=== PATIENT | male | born 1955 | race Hispanic/Latino ===

== ENCOUNTER 2019-03-21 13:10 | Inpatient (IN) | payer MEDICARE, OTHER ==
[2019-03-21 13:10] VITALS: BMI 22.6
--- NOTE | 2019-03-21 13:45 | C.PDOC ---
History Of Present Illness Patient is a 63yo M with PMH DVT on Xarelto, hypovitaminosis, schizoaffective disorder, and recurrent bilateral LE ulcers who was sent in by Dr. May, his roll builder, for IV antibiotics of worsening L leg ulcer. He was started on a course of Clindamycin 8 days ago of which he admits being noncompliant with. He goes to wound care once a week to have his bilateral LE redressed with occlusive dressing. Wound care noted that his LE was becoming more erythematous and edematous, having minimal discharge. He states that it does not bleed, but continuously has serous discharge. He noted his pants were starting to fit tighter, but he is still able to bear weight and ambulate without difficult. Denies HTN, DM, HLD. Denies trauma, chest pain, palpitations, shortness of breath, abdominal pain, changes in urination or defecation, numbness, tingling, fever. Admits to chills occasionally, not associated with ulcer status. <Marlys Rodrigues - Last Filed: 03/21/19 14:58> History Per: Patient Onset/Duration Of Symptoms: Days, Gradual Current Symptoms Are (Timing): Worse Location Of Injury: Right: Ankle (open wound R>L on medial aspects), Leg (open wound), Left: Ankle <Maryls Rodrigues - Last Filed: 03/21/19 14:58> <Erasto Dykes DO - Last Filed: 03/21/19 18:10> Time Seen by Provider: 03/21/19 13:26 Chief Complaint (Nursing): Abnormal Skin Integrity Past Medical History Reviewed: Historical Data, Nursing Documentation, Vital Signs Vital Signs: Last Vital Signs Temp 97.7 F 03/21/19 13:13 Pulse 79 03/21/19 13:13 Resp 16 03/21/19 13:13 BP 127/75 03/21/19 13:13 Pulse Ox 100 03/21/19 13:13 - Medical History PMH: Deep Vein Thrombosis, Schizophrenia (schizoaffective disorder) Surgical History: Tonsillectomy - [facility] Procedures CENTRAL VENOUS CATHETER PLACEMENT WITH GUIDANCE (09/30/13) CORONAR ARTERIOGR-2 CATH (08/29/14) DERMAL REGENERATIVE GRAFT (11/15/13) EXCIS DEBRIDE OF WOUND, INFECT, OR BURN (07/22/13) IMMOBILIZ/WOUND ATTN NEC (01/22/14) INFLUENZA VACCINATION (08/29/14) LEFT HEART CARDIAC CATH (08/29/14) LT HEART ANGIOCARDIOGRAM (08/29/14) NONEXCIS DEBRID OF WOUND, INFECT, OR BURN (07/15/15) OTHER CAST APPLICATION (02/19/14) VENOUS CATHETERIZATION NEC (08/29/14) Family History: States: No Known Family Hx - Social History Hx Tobacco Use: No Hx Alcohol Use: No Hx Substance Use: No - Immunization History Hx Tetanus Toxoid Vaccination: Yes (2014) Hx Influenza Vaccination: Yes Hx Pneumococcal Vaccination: Yes (2017) <Marlys Rodrigues - Last Filed: 03/21/19 14:58> Vital Signs: Last Vital Signs Temp 97.2 F L 03/21/19 17:34 Pulse 81 03/21/19 17:34 Resp 20 03/21/19 17:34 BP 135/73 03/21/19 17:34 Pulse Ox 97 03/21/19 17:34 - [facility] Procedures CENTRAL VENOUS CATHETER PLACEMENT WITH GUIDANCE (09/30/13) CORONAR ARTERIOGR-2 CATH (08/29/14) DERMAL REGENERATIVE GRAFT (11/15/13) EXCIS DEBRIDE OF WOUND, INFECT, OR BURN (07/22/13) IMMOBILIZ/WOUND ATTN NEC (01/22/14) INFLUENZA VACCINATION (08/29/14) LEFT HEART CARDIAC CATH (08/29/14) LT HEART ANGIOCARDIOGRAM (08/29/14) NONEXCIS DEBRID OF WOUND, INFECT, OR BURN (07/15/15) OTHER CAST APPLICATION (02/19/14) VENOUS CATHETERIZATION NEC (08/29/14) <Erasto Dykes DO - Last Filed: 03/21/19 18:10> Review Of Systems Constitutional: Positive for: Chills. Negative for: Fever, Weakness, Malaise, Weight loss Cardiovascular: Positive for: Edema. Negative for: Chest Pain, Palpitations, Light Headedness Respiratory: Negative for: Cough, Shortness of Breath, Sputum, Wheezing Gastrointestinal: Negative for: Nausea, Vomiting, Abdominal Pain, Diarrhea, Constipation Genitourinary: Negative for: Dysuria, Frequency, Incontinence Musculoskeletal: Positive for: Leg Pain. Negative for: Foot Pain Skin: Positive for: Lesions Neurological: Negative for: Weakness, Numbness Psych: Negative for: Anxiety, Suicidal ideation <Marlys Rodrigues Marcello - Last Filed: 03/21/19 14:58> Physical Exam - Physical Exam Appears: No Acute Distress, Chronically Ill Skin: Warm (warm to touch ), Other (large 3"x6" dark red ulcer with areas of pus on medial aspect of L leg. Erythematous and edematous border) Head: Atraumatic, Normacephalic Eye(s): bilateral: Normal Inspection (glasses), PERRL, EOMI Cardiovascular: Rhythm Regular, Edema, No Murmur Respiratory: Normal Breath Sounds, No Accessory Muscle Use, No Rales, No Rhonchi, No Stridor Gastrointestinal/Abdominal: Bowel Sounds, Soft, No Tenderness, No Distention, No Rebound Back: Normal Inspection, No CVA Tenderness Extremity: Normal ROM, Calf Tenderness, Capillary Refill (< 2 sec), Swelling Extremity: Right: Joint Effusion, Limited ROM To Joint (limited ankle ROM secondary to swelling), No Pedal Edema (2+ pitting edema in foot, ankle, ascending to knee), Normal ROM, Unable To Bear Weight (patient is able to bear weight and walk without difficulty), Bilateral: Pulse Deficit (pulses palpable through edema) Pulses: Left Dorsalis Pedis: Normal, Right Dorsalis Pedis: Normal DTR: Knee (R): 2+, Knee (L): 2+ Neurological/Psych: Oriented x3, Normal Speech, Normal Cognition Gait: Steady <Marlys Rodrigues Marcello - Last Filed: 03/21/19 14:58> ED Course And Treatment - Laboratory Results Result Diagrams: 03/21/19 14:35 03/21/19 14:35 O2 Sat by Pulse Oximetry: 100 <Marlys Rodrigues - Last Filed: 03/21/19 14:58> - Laboratory Results Result Diagrams: 03/21/19 14:35 03/21/19 14:35 Lab Results: Total Bilirubin 0.4 mg/dL (0.2-1.3) 03/21/19 14:35 AST 32 U/L (17-59) 03/21/19 14:35 ALT 28 U/L (21-72) 03/21/19 14:35 Alkaline Phosphatase 53 U/L (38-126) 03/21/19 14:35 Total Protein 6.7 g/dL (6.3-8.3) 03/21/19 14:35 Albumin 4.0 g/dL (3.5-5.0) 03/21/19 14:35 Globulin 2.8 gm/dL (2.2-3.9) 03/21/19 14:35 Albumin/Globulin Ratio 1.4 (1.0-2.1) 03/21/19 14:35 <Erasto Dykes DO - Last Filed: 03/21/19 18:10> Medical Decision Making Medical Decision Making: - labs - XR ankle L: Thick periosteal reaction in the visualized distal tibia and fibula which may represent acute and/or chronic osteomyelitis. No evidence for bone erosion. Moderate periarticular soft tissue swelling and irregular soft tissue defects in the medial left most compatible with ulceration and anne lulitis. - blood and wound Cx sent 1501 Dr. Martin called, will admit inpatient to his service. Aztreonam and Vanco started. <Marlys Rodrigues - Last Filed: 03/21/19 14:58> Disposition Discussed With : Marlon Martin Doctor Will See Patient In The: Hospital - Disposition Disposition Time: 15:03 <Marlys Rodrigues - Last Filed: 03/21/19 14:58> <Erasto Dykes DO - Last Filed: 03/21/19 18:10> - Disposition Disposition: HOSPITALIZED Condition: FAIR - Clinical Impression Clinical Impression: Osteomyelitis of left leg - PA / CULLET CRUSHER / Resident Statement ELSA has reviewed & agrees with the documentation as recorded. ELSA has examined the patient and agrees with the treatment plan. <Marlys Rodrigues - Last Filed: 03/21/19 14:58> - PA / CULLET CRUSHER / Resident Statement ELSA has reviewed & agrees with the documentation as recorded. ELSA has examined the patient and agrees with the treatment plan. <Erasto Dykes DO - Last Filed: 03/21/19 18:10>
[2019-03-21 14:40] LABS: BASO % 0.4 % (0.0-2.0); EOS # 0.1 K/uL (0.0-0.7); EOS % 1.2 % (0.0-4.0); LYMPH # 0.6 K/uL (1.0-4.3); LYMPH % 10.2 % (20.0-40.0); MEAN CELL VOLUME 94.8 fL (80.0-94.0); MEAN CORPUSCULAR HEMOGLOBIN 32.3 pg (27.0-31.0); MEAN CORPUSCULAR HGB CONC 34.1 g/dL (33.0-37.0); MEAN PLATELET VOLUME 7.8 fL (7.2-11.7); MONO # 0.5 K/uL (0.0-0.8); NEUT # 5.1 K/uL (1.8-7.0); NEUT % 80.2 % (50.0-75.0); RBC 4.02 Mil/uL (4.40-5.90); RED CELL DISTRIBUTION WIDTH 12.9 % (11.5-14.5); WHITE BLOOD COUNT 6.4 K/uL (4.8-10.8)
--- NOTE | 2019-03-21 14:54 | RAD ---
Date of service: 03/21/2019 PROCEDURE: Left Ankle Radiographs. HISTORY: left ankle ulcer r/o osteo COMPARISON: 09/30/2013. TECHNIQUE: 3 views obtained. FINDINGS: BONES: There is thick periosteal reaction in visualized distal tibia and fibula. There is no acute fracture or bone destruction. There is diffuse bone demineralization. There is a large plantar calcaneal spur. There is linear ossification in the Achilles tendon at its attachment to the calcaneus. JOINTS: Mild degenerative osteoarthrosis in the talonavicular joint. Ankle mortise maintained. Talar dome intact SOFT TISSUES: Moderate periarticular soft tissue swelling and soft tissue defects in the distal medial leg. OTHER FINDINGS: None. IMPRESSION: Thick periosteal reaction in the visualized distal tibia and fibula which may represent acute and/or chronic osteomyelitis. No evidence for bone erosion. Moderate periarticular soft tissue swelling and irregular soft tissue defects in the medial left most compatible with ulceration and cellulitis.
[2019-03-21 14:56] LABS: ALB/GLOB RATIO 1.4 (1.0-2.1); ALT/SGPT 28 U/L (21-72); AST/SGOT 32 U/L (17-59); BLOOD UREA NITROGEN 25 mg/dL (9-20); GFR NON-AFRICAN AMERICAN > 60
[2019-03-21] MEDS ORDERED: Aztreonam 1 GM in Sodium Chloride 0.9% 100 ML IVPB ONE (15:02)
[2019-03-22] MEDS: Aztreonam 2 GM in Sodium Chloride 0.9% 100 ML IVPB SCH ×3 (00:33→17:56)
[2019-03-22] MEDS: Vancomycin 1 gm/NS 200 ml 1 GM/200 ML BAG IVPB SCH ×2 (03:05→16:13)
--- NOTE | 2019-03-22 09:06 | CP.PCM.CON ---
<Portillo May - Last Filed: 03/22/19 09:02> History of Present Illness - History of Present Illness History of Present Illness: 63 year old male seen at [facility] [place] this week and worsened ankle ulcer with Psuedomonas infection and failed outpatient therapy with admitted non adherence Pt can not take Cipro due to drug interaction and due to worsening infection and spreading, largening of wound admission was advised . Past Patient History - Past Medical History & Family History Past Medical History?: Yes - Past Social History Smoking Status: Never Smoked - MUSCULOSKELETAL/RHEUMATOLOGICAL Hx Falls: Yes - PSYCHIATRIC Hx Schizophrenia: Yes (schizoaffective disorder) Hx Substance Use: No - SURGICAL HISTORY Hx Tonsillectomy: Yes - ANESTHESIA Hx Anesthesia: Yes Meds Allergies/Adverse Reactions: Allergies Allergy/AdvReac Type Severity Reaction Status Date / Time Penicillins Allergy ITCHING Verified 03/21/19 13:17 - Medications Medications: Current Medications Acetaminophen (Tylenol 325mg Tab) 650 mg PO Q6 PRN PRN Reason: Pain Ascorbic Acid (Vitamin C 500 Mg Tab) 500 mg PO DAILY [facility] Cyanocobalamin (Vitamin B12 1000 Mcg Tab) 1,000 mcg PO DAILY [facility] Aztreonam 2 gm/ Sodium (Chloride) 100 mls @ 200 mls/hr IVPB Q8H [facility]; Protocol Last Admin: 03/22/19 00:33 Dose: 200 mls/hr Vancomycin/Sodium Chloride (Vancomycin 1 Gm/Ns 200 Ml) 1 gm in 200 mls @ 133 mls/hr IVPB Q12H [facility]; Protocol Stop: 03/27/19 04:01 Last Admin: 03/22/19 03:05 Dose: 133 mls/hr Olanzapine (Zyprexa) 5 mg PO HS [facility] Last Admin: 03/21/19 21:31 Dose: 5 mg Rivaroxaban (Xarelto) 20 mg PO DAILY [facility] Zinc Sulfate (Zinc Sulfate 220 Mg Cap) 220 mg PO DAILY [facility] Results - Vital Signs Recent Vital Signs: Last Vital Signs Temp 98.6 F 03/22/19 08:27 Pulse 76 03/22/19 08:27 Resp 20 03/22/19 08:27 BP 110/67 03/22/19 08:27 Pulse Ox 98 03/22/19 08:27 - Labs Result Diagrams: 03/21/19 14:35 03/21/19 14:35 Labs: Laboratory Results - last 24 hr 03/21/19 03/21/19 14:35 14:35 WBC 6.4 RBC 4.02 L Hgb 13.0 D Hct 38.1 MCV 94.8 H D MCH 32.3 H MCHC 34.1 RDW 12.9 Plt Count 219 D MPV 7.8 Neut % (Auto) 80.2 H Lymph % (Auto) 10.2 L Bremer % (Auto) 8.0 Eos % (Auto) 1.2 Baso % (Auto) 0.4 Neut # (Auto) 5.1 Lymph # (Auto) 0.6 L Bremer # (Auto) 0.5 Eos # (Auto) 0.1 Baso # (Auto) 0.0 Sodium 132 Potassium 3.7 Chloride 96 L Carbon Dioxide 28 Anion Gap 11 BUN 25 H Creatinine 0.7 L Est GFR ( Amer) > 60 Est GFR (Non-Af Amer) > 60 Random Glucose 87 Calcium 9.0 Total Bilirubin 0.4 AST 32 ALT 28 Alkaline Phosphatase 53 Total Protein 6.7 Albumin 4.0 Globulin 2.8 Albumin/Globulin Ratio 1.4 <Alberto Saenz - Last Filed: 03/22/19 14:17> History of Present Illness - History of Present Illness History of Present Illness: PMHx: DVT PSHx: Tonsilectomy Allergies: Penicillins SHx: Denies EtOH, smoking or any illicit drug usage Review of Systems - Constitutional Constitutional: As Per HPI Meds - Medications Medications: Current Medications Acetaminophen (Tylenol 325mg Tab) 650 mg PO Q6 PRN PRN Reason: Pain Ascorbic Acid (Vitamin C 500 Mg Tab) 500 mg PO DAILY [facility] Last Admin: 03/22/19 09:18 Dose: 500 mg Cyanocobalamin (Vitamin B12 1000 Mcg Tab) 1,000 mcg PO DAILY [facility] Last Admin: 03/22/19 09:19 Dose: 1,000 mcg Aztreonam 2 gm/ Sodium (Chloride) 100 mls @ 200 mls/hr IVPB Q8H [facility]; Protocol Last Admin: 03/22/19 09:19 Dose: 200 mls/hr Vancomycin/Sodium Chloride (Vancomycin 1 Gm/Ns 200 Ml) 1 gm in 200 mls @ 133 mls/hr IVPB Q12H [facility]; Protocol Stop: 03/27/19 04:01 Last Admin: 03/22/19 03:05 Dose: 133 mls/hr Olanzapine (Zyprexa) 5 mg PO HS [facility] Last Admin: 03/21/19 21:31 Dose: 5 mg Rivaroxaban (Xarelto) 20 mg PO DAILY [facility] Last Admin: 03/22/19 09:19 Dose: 20 mg Zinc Sulfate (Zinc Sulfate 220 Mg Cap) 220 mg PO DAILY [facility] Last Admin: 03/22/19 09:18 Dose: 220 mg Physical Exam - Constitutional Appears: Well, Non-toxic, No Acute Distress - Extremities Exam Additional comments: Dressing to bilateral LE are clean, dry and intact - no stikethrough or drainage noted - Neurological Exam Neurological exam: Alert, Oriented x3 - Psychiatric Exam Psychiatric exam: Normal Affect, Normal Mood Results - Vital Signs Recent Vital Signs: Last Vital Signs Temp 98.6 F 03/22/19 08:27 Pulse 76 03/22/19 08:27 Resp 20 03/22/19 08:27 BP 110/67 03/22/19 08:27 Pulse Ox 98 03/22/19 08:27 - Labs Result Diagrams: 03/21/19 14:35 03/21/19 14:35 Labs: Laboratory Results - last 24 hr 03/21/19 03/21/19 14:35 14:35 WBC 6.4 RBC 4.02 L Hgb 13.0 D Hct 38.1 MCV 94.8 H D MCH 32.3 H MCHC 34.1 RDW 12.9 Plt Count 219 D MPV 7.8 Neut % (Auto) 80.2 H Lymph % (Auto) 10.2 L Bremer % (Auto) 8.0 Eos % (Auto) 1.2 Baso % (Auto) 0.4 Neut # (Auto) 5.1 Lymph # (Auto) 0.6 L Bremer # (Auto) 0.5 Eos # (Auto) 0.1 Baso # (Auto) 0.0 Sodium 132 Potassium 3.7 Chloride 96 L Carbon Dioxide 28 Anion Gap 11 BUN 25 H Creatinine 0.7 L Est GFR ( Amer) > 60 Est GFR (Non-Af Amer) > 60 Random Glucose 87 Calcium 9.0 Total Bilirubin 0.4 AST 32 ALT 28 Alkaline Phosphatase 53 Total Protein 6.7 Albumin 4.0 Globulin 2.8 Albumin/Globulin Ratio 1.4 Assessment & Plan - Assessment and Plan (Free Text) Assessment: 63 year old male with PMHx of DVT was evaluated for bilateral LE ulcerations Plan: Patient seen and evaluated with Dr. May VSMariam, no leukocytosis Ankle x-rays: Periosteal reaction with cortical margin erosion on the distal aspect of the tibia and fibula - concerning for chronic OM; no soft tissue emphysema Bone scan ordered - pending Venous duplex - pending Wound cultures: G+ cocci; G- rods IV abx as per ID - recs appreciated Dressing changed using medihoney, DSD, SEAN Keep RLE unna boot intact Will continue to monitor patient while in-house Thank you for the podiatry consult and allowing to take part in patient care - Date & Time Date: 03/22/19 Time: 14:17
--- NOTE | 2019-03-22 12:47 | NM ---
Date of service: 03/22/2019 PROCEDURE: Three-phase bone Scan HISTORY: Osteomyelitis left ankle. COMPARISON: 10/04/2013 three-phase bone scan lower extremities. March 21, 2019. Left ankle radiographs. TECHNIQUE: Following administration of 28.3 miCu of Tc MDP three-phase bone scan attention left ankle performed. FINDINGS: Flow component: Increased flow primarily to the medial aspect of the left ankle. No focal accumulation of radionuclide identified in the areas of interest distal left tibia and fibula. Blood pool component: Intense accumulation of radionuclide in the soft tissues X corresponding to findings within the soft tissues on recent radiographs. Specifically the ulcer adjacent to the distal tibia. Delayed images at 3:00: Accumulation of radionuclide in the left calcaneus and left 5th digit. Other findings: None. IMPRESSION: Areas of intense increased flow to and accumulation within soft tissues left ankle corresponding to radiographic findings. This is consistent with cellulitis. No scintigraphic evidence of acute osteomyelitis.
--- NOTE | 2019-03-22 16:37 | CP.PCM.CON ---
History of Present Illness - History of Present Illness History of Present Illness: 63yo M with PMH DVT on Xarelto, hypovitaminosis, schizoaffective disorder, and recurrent bilateral LE ulcers He failed an out patient course of Clindamycin 8 days ago of which he admits being noncompliant with. Wound care noted that his LE was becoming more erythematous and edematous, having minimal discharge. Location Of Injury: Right: Ankle (open wound R>L on medial aspects), Leg (open wound), Left: Ankle PMH DVT with postphlebitic syndrome LLE recurrent skin ulcers/ celluliits denies IVDA FH non contributory Review of Systems - Constitutional Constitutional: As Per HPI, Malaise - EENT Eyes: absent: As Per HPI, Blind Spots, Blurred Vision, Change in Vision, Decreased Night Vision, Diplopia, Discharge, Dry Eye, Exophthalmos, Floaters, Irritation, Itchy Eyes, Loss of Peripheral Vision, Pain, Photophobia, Requires Corrective Lenses, Sees Flashes, Spots in Vision, Tunnel Vision, Other Visual Disturbances, Loss of Vision, Other Ears: absent: As Per HPI, Decreased Hearing, Ear Discharge, Ear Pain, Tinnitus, Abnormal Hearing, Disequilibrium, Dizziness, Other Nose/Mouth/Throat: absent: As Per HPI, Epistaxis, Nasal Congestion, Nasal Discharge, Nasal Obstruction, Nasal Trauma, Nose Pain, Post Nasal Drip, Sinus Pain, Sinus Pressure, Bleeding Gums, Change in Voice, Dental Pain, Dry Mouth, Dysphagia, Halitosis, Hoarsness, Lip Swelling, Mouth Lesions, Mouth Pain, Odynophagia, Sore Throat, Throat Swelling, Tongue Swelling, Facial Pain, Neck Pain, Neck Mass, Other - Cardiovascular Cardiovascular: As Per HPI - Respiratory Respiratory: absent: As Per HPI, Cough, Dyspnea, Hemoptysis, Dyspnea on Exertion, Wheezing, Snoring, Stridor, Pain on Inspiration, Chest Congestion, Excessive Mucous Production, Change in Mucous Color, Pain with Coughing, Other - Gastrointestinal Gastrointestinal: absent: As Per HPI, Abdominal Pain, Belching, Bloating, Change in Bowel Habits, Change in Stool Character, Coffee Ground Emesis, Constipation, Cramping, Diarrhea, Dyspepsia, Dysphagia, Early Satiety, Excessive Flatus, Fecal Incontinence, Heartburn, Hematemesis, Hematochezia, Loose Stools, Melena, Nausea, Odynophagia, Temesmus, Vomiting, Other - Genitourinary Genitourinary: absent: As Per HPI, Change in Urinary Stream, Difficulty Urinating, Dysuria, Flank Pain, Hematuria, Pyuria, Nocturia, Urinary Incontinence, Urinary Frequency, Urinary Hesitance, Urinary Urgency, Voiding Freq/Small Amts, Freq UTI, Hx Renal/Bladder Calculi, Hx /Renal Surgery, Bladder Distension, Other - Musculoskeletal Musculoskeletal: absent: As Per HPI, Abnormal Gait, Arthralgias, Atrophy, Back Pain, Deformity, Joint Swelling, Limited Range of Motion, Loss of Height, Muscle Cramps, Muscle Weakness, Myalgias, Neck Pain, Numbness, Radiating Pain into Limb, Stiffness, Tingling, Other - Integumentary Integumentary: Skin Pain, Wounds - Neurological Neurological: absent: As Per HPI, Abnormal Gait, Abnormal Hearing, Abnormal Movements, Abnormal Speech, Behavioral Changes, Burning Sensations, Confusion, Convulsions, Disequilibrium, Dizziness, Numbness, Focal Weakness, Frequent Falls, Headaches, Lack of Coordination, Loss of Vision, Memory Loss, Paresthesias, Radicular Pain, Restless Legs, Sensory Deficit, Syncope, Tingling, Tremor, Vertigo, Weakness, Other Visual Disturbances, Other - Psychiatric Psychiatric: As Per HPI - Endocrine Endocrine: absent: As Per HPI, Change in Body Appearance, Change in Libido, Cold Intolorance, Deepening of Voice, Excessive Sweating, Fatigue, Flushing, Heat Intolorance, Increase in Ring/Shoe/Hat Size, Palpitations, Polydipsia, Polyphagia, Polyuria, Other - Hematologic/Lymphatic Hematologic: absent: As Per HPI, Easy Bleeding, Easy Bruising, Lymphadenopathy, Other Past Patient History - Past Medical History & Family History Past Medical History?: Yes - Past Social History Smoking Status: Never Smoked - CARDIAC Hx Hypertension: Yes - ENDOCRINE/METABOLIC Hx Diabetes Mellitus Type 2: Yes - MUSCULOSKELETAL/RHEUMATOLOGICAL Hx Falls: Yes - PSYCHIATRIC Hx Schizophrenia: Yes (schizoaffective disorder) Hx Substance Use: No - SURGICAL HISTORY Hx Tonsillectomy: Yes - ANESTHESIA Hx Anesthesia: Yes Meds Allergies/Adverse Reactions: Allergies Allergy/AdvReac Type Severity Reaction Status Date / Time Penicillins Allergy ITCHING Verified 03/21/19 13:17 - Medications Medications: Current Medications Acetaminophen (Tylenol 325mg Tab) 650 mg PO Q6 PRN PRN Reason: Pain Ascorbic Acid (Vitamin C 500 Mg Tab) 500 mg PO DAILY [facility] Last Admin: 03/22/19 09:18 Dose: 500 mg Cyanocobalamin (Vitamin B12 1000 Mcg Tab) 1,000 mcg PO DAILY [facility] Last Admin: 03/22/19 09:19 Dose: 1,000 mcg Aztreonam 2 gm/ Sodium (Chloride) 100 mls @ 200 mls/hr IVPB Q8H [facility]; Protocol Last Admin: 03/22/19 09:19 Dose: 200 mls/hr Vancomycin/Sodium Chloride (Vancomycin 1 Gm/Ns 200 Ml) 1 gm in 200 mls @ 133 mls/hr IVPB Q12H [facility]; Protocol Stop: 03/27/19 04:01 Last Admin: 03/22/19 16:13 Dose: 133 mls/hr Olanzapine (Zyprexa) 5 mg PO HS [facility] Last Admin: 03/21/19 21:31 Dose: 5 mg Rivaroxaban (Xarelto) 20 mg PO DAILY [facility] Last Admin: 03/22/19 09:19 Dose: 20 mg Zinc Sulfate (Zinc Sulfate 220 Mg Cap) 220 mg PO DAILY [facility] Last Admin: 03/22/19 09:18 Dose: 220 mg Physical Exam - Constitutional Appears: Non-toxic, Chronically Ill - Head Exam Head Exam: ATRAUMATIC, NORMAL INSPECTION, NORMOCEPHALIC - Eye Exam Eye Exam: PERRL. absent: Scleral icterus Pupil Exam: NORMAL ACCOMODATION - ENT Exam ENT Exam: Mucous Membranes Dry, Normal External Ear Exam, Normal Oropharynx - Neck Exam Neck exam: Positive for: Normal Inspection - Respiratory Exam Respiratory Exam: Clear to Auscultation Bilateral, NORMAL BREATHING PATTERN - Cardiovascular Exam Cardiovascular Exam: REGULAR RHYTHM - GI/Abdominal Exam GI & Abdominal Exam: Normal Bowel Sounds, Soft. absent: Tenderness - Rectal Exam Rectal Exam: Deferred - Exam Exam: NORMAL INSPECTION - Extremities Exam Extremities exam: Positive for: calf tenderness, full ROM, pedal edema, tenderness, pedal pulses present. Negative for: joint swelling, normal capillar y refill, normal inspection Additional comments: uklcer left leg with erythema no erica pus - Back Exam Back exam: NORMAL INSPECTION - Neurological Exam Neurological exam: Alert, CN II-XII Intact, Normal Gait, Oriented x3, Reflexes Normal - Psychiatric Exam Psychiatric exam: Depressed - Skin Skin Exam: Dry, Erythema Results - Vital Signs Recent Vital Signs: Last Vital Signs Temp 98.3 F 03/22/19 15:00 Pulse 68 03/22/19 15:00 Resp 20 03/22/19 15:00 BP 121/68 03/22/19 15:00 Pulse Ox 98 03/22/19 15:00 - Labs Result Diagrams: 03/21/19 14:35 03/21/19 14:35 Assessment & Plan (1) Postphlebitic ankle ulcer Status: Acute (2) Post-phlebitic dermatosis of both lower extremities Status: Acute (3) Post-phlebitic dermatosis of lower extremity Status: Acute (4) Osteomyelitis of left leg Status: Acute (5) Lymphedema of lower extremity Status: Acute (6) Pressure ulcer of ankle Status: Acute (7) Bipolar 1 disorder, depressed, moderate Status: Chronic - Assessment and Plan (Free Text) Assessment: consider MRI ankle check cultures consider vascular eval cont IV antibiotics
--- NOTE | 2019-03-22 23:00 | CP.PCM.HP ---
Present on Admission - Present on Admission Any Indicators Present on Admission: Yes History of DVT/PE: Yes Past Patient History - Past Medical History & Family History Past Medical History?: Yes - Past Social History Smoking Status: Never Smoked - CARDIAC Hx Hypertension: Yes - ENDOCRINE/METABOLIC Hx Diabetes Mellitus Type 2: Yes - MUSCULOSKELETAL/RHEUMATOLOGICAL Hx Falls: Yes - PSYCHIATRIC Hx Schizophrenia: Yes (schizoaffective disorder) Hx Substance Use: No - SURGICAL HISTORY Hx Tonsillectomy: Yes - ANESTHESIA Hx Anesthesia: Yes Meds Allergies/Adverse Reactions: Allergies Allergy/AdvReac Type Severity Reaction Status Date / Time Penicillins Allergy ITCHING Verified 03/21/19 13:17 Results - Vital Signs Recent Vital Signs: Last Vital Signs Temp 98.3 F 03/22/19 15:00 Pulse 68 03/22/19 15:00 Resp 20 03/22/19 15:00 BP 121/68 03/22/19 15:00 Pulse Ox 98 03/22/19 15:00 - Labs Result Diagrams: 03/21/19 14:35 03/21/19 14:35
[2019-03-23] MEDS: Aztreonam 2 GM in Sodium Chloride 0.9% 100 ML IVPB SCH ×3 (01:18→17:17)
--- NOTE | 2019-03-23 02:54 | HP ---
CHIEF COMPLAINT: Nonhealing left leg ulcer. HISTORY OF PRESENT ILLNESS: This is a 63-year-old white male well-known to me with history of deep venous thrombosis with postphlebitic syndrome with venous insufficiency in both legs but more on the left side with history of nonhealing left leg ulcer which is being followed up by his associate professor of communication. He has been on wound care initially, it has been improving. The patient is also known to have schizoaffective disorder, and on the day of admission, he was referred by his private associate professor of communication for admission for left leg ulcer. The patient was given a course of clindamycin on outpatient basis. The patient has not been able to comply with that. He did not improve. His wound got worse. He has more erythema, redness, swelling and he has discharge. The patient is not bleeding from this. The patient noted that on his left leg pants were getting tighter and he was having difficulty walking with weightbearing with increasing pain in the left ankle. He denies any history of right leg swelling. He denies any dyspnea on exertion, orthopnea, paroxysmal nocturnal dyspnea. He denies any history of trauma to the left leg. He denies any history of chest pain, shortness of breath, palpitation, weakness, or dizziness. He denies any history of dysuria, hematuria, pyuria. He denies any history of polyuria, polydipsia, polyphagia. He denies any history of tingling, numbness, paresthesias. The patient has left leg swelling. 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 SOCIAL HISTORY: He is nonsmoker, non-EtOH user. PAST MEDICAL HISTORY: DVT, postphlebitic syndrome, venous insufficiency, schizoaffective disorder. CURRENT MEDICATIONS: Xarelto and Zyprexa. PHYSICAL EXAMINATION: GENERAL: An elderly male who is not in distress. VITAL SIGNS: Blood pressure 127/75, pulse 79, respiratory rate 16, temperature 97.7. SKIN: The patient has left ankle ulcer, which is dressed up and the patient has bilateral venous insufficiency with leg edema more on the left side. HEENT: Atraumatic and normocephalic. Negative pallor. Negative jaundice. Extraocular movements are intact. NECK: Supple. No JVD. No lymph nodes. No thyromegaly. No carotid bruits. CHEST WALL: Bilateral symmetrical expansion. No tenderness. No deformity. LUNGS: Bilaterally clear. No rales. No rhonchi. CARDIOVASCULAR SYSTEM: PMI is not localized. S1 and S2, regular. No heave. No thrills. ABDOMEN: Soft and nontender. Bowel sounds are positive. RECTAL: Enlarged prostate. GENITALIA: Normal. EXTREMITIES: As above. CENTRAL NERVOUS SYSTEM: Awake, alert and oriented x3. ASSESSMENT: 1. Left leg ulcer with suppurated infection. 2. Deep venous thrombosis with postphlebitic syndrome with venous insufficiency. 3. Schizophrenia. PLAN: Admit. Detailed orders written. Seen and examined. Marlon Martin MD
[2019-03-23] MEDS: Vancomycin 1 gm/NS 200 ml 1 GM/200 ML BAG IVPB SCH ×2 (03:40→16:30)
--- NOTE | 2019-03-23 10:13 | CP.PCM.PN ---
<Portillo May - Last Filed: 03/23/19 10:13> Subjective - Date & Time of Evaluation Date of Evaluation: 03/23/19 Time of Evaluation: 10:13 Objective - Vital Signs/Intake and Output Vital Signs (last 24 hours): Temp Pulse Resp BP Pulse Ox 97.9 F 73 20 124/73 99 03/23/19 07:46 03/23/19 07:46 03/23/19 07:46 03/23/19 07:46 03/23/19 07:46 Intake and Output: 03/23/19 03/23/19 06:59 18:59 Intake Total 1800 Output Total 2590 Balance -790 - Medications Medications: Current Medications Acetaminophen (Tylenol 325mg Tab) 650 mg PO Q6 PRN PRN Reason: Pain Ascorbic Acid (Vitamin C 500 Mg Tab) 500 mg PO DAILY [facility] Last Admin: 03/23/19 09:01 Dose: 500 mg Cyanocobalamin (Vitamin B12 1000 Mcg Tab) 1,000 mcg PO DAILY [facility] Last Admin: 03/23/19 09:01 Dose: 1,000 mcg Aztreonam 2 gm/ Sodium (Chloride) 100 mls @ 200 mls/hr IVPB Q8H [facility]; Protocol Last Admin: 03/23/19 08:53 Dose: 200 mls/hr Vancomycin/Sodium Chloride (Vancomycin 1 Gm/Ns 200 Ml) 1 gm in 200 mls @ 133 mls/hr IVPB Q12H [facility]; Protocol Stop: 03/27/19 04:01 Last Admin: 03/23/19 03:40 Dose: 133 mls/hr Olanzapine (Zyprexa) 5 mg PO HS [facility] Last Admin: 03/22/19 21:10 Dose: 5 mg Rivaroxaban (Xarelto) 20 mg PO DAILY [facility] Last Admin: 03/23/19 09:01 Dose: 20 mg Zinc Sulfate (Zinc Sulfate 220 Mg Cap) 220 mg PO DAILY [facility] Last Admin: 03/23/19 09:01 Dose: 220 mg - Labs Labs: 03/21/19 14:35 03/21/19 14:35 <Wilfredo Romo - Last Filed: 03/23/19 11:40> Subjective - Subjective Subjective: Podiatry progress note - Dr. May 63M seen and evaluated at bedside with Dr. May. Resting comfortably. Denies pain to ankle ulceration. Dressings appear clean and intact. Denies n/v/f/c/sob and has no other acute complaints. Objective - Vital Signs/Intake and Output Vital Signs (last 24 hours): Temp Pulse Resp BP Pulse Ox 97.9 F 73 20 124/73 99 03/23/19 07:46 03/23/19 07:46 03/23/19 07:46 03/23/19 07:46 03/23/19 07:46 Intake and Output: 03/23/19 03/23/19 06:59 18:59 Intake Total 1800 Output Total 2590 Balance -790 - Medications Medications: Current Medications Acetaminophen (Tylenol 325mg Tab) 650 mg PO Q6 PRN PRN Reason: Pain Ascorbic Acid (Vitamin C 500 Mg Tab) 500 mg PO DAILY [facility] Last Admin: 03/23/19 09:01 Dose: 500 mg Cyanocobalamin (Vitamin B12 1000 Mcg Tab) 1,000 mcg PO DAILY [facility] Last Admin: 03/23/19 09:01 Dose: 1,000 mcg Aztreonam 2 gm/ Sodium (Chloride) 100 mls @ 200 mls/hr IVPB Q8H [facility]; Protocol Last Admin: 03/23/19 08:53 Dose: 200 mls/hr Vancomycin/Sodium Chloride (Vancomycin 1 Gm/Ns 200 Ml) 1 gm in 200 mls @ 133 mls/hr IVPB Q12H [facility]; Protocol Stop: 03/27/19 04:01 Last Admin: 03/23/19 03:40 Dose: 133 mls/hr Olanzapine (Zyprexa) 5 mg PO HS [facility] Last Admin: 03/22/19 21:10 Dose: 5 mg Rivaroxaban (Xarelto) 20 mg PO DAILY [facility] Last Admin: 03/23/19 09:01 Dose: 20 mg Zinc Sulfate (Zinc Sulfate 220 Mg Cap) 220 mg PO DAILY [facility] Last Admin: 03/23/19 09:01 Dose: 220 mg - Labs Labs: 03/21/19 14:35 03/21/19 14:35 - Constitutional Appears: Non-toxic - Head Exam Head Exam: ATRAUMATIC - Extremities Exam Additional comments: Dressing to bilateral LE are clean, dry and intact - no stikethrough or drainage noted Wound appears clean and improved, mild erythema to borders, mild edema noted to left ankle nonpitting - Neurological Exam Neurological Exam: Alert, Awake, Oriented x3 - Psychiatric Exam Psychiatric exam: Normal Affect Assessment and Plan - Assessment and Plan (Free Text) Assessment: 63M with chronic nonhealing left ankle stasis ulceration Plan: Patient seen and evaluated with Dr. May VSS, WBC 6.4 Wound cleansed with sterile saline and dressed with medihoney and dry sterile dressing Continue IV abx Ankle x-ray - possible chronic osteo involvement Bone scan - no evidence of acute osteo Negative DVT Will continue to follow Upon d/c will f/u with Dr. May at [facility]
--- NOTE | 2019-03-23 20:33 | CP.PCM.PN ---
Subjective - Date & Time of Evaluation Date of Evaluation: 03/23/19 Time of Evaluation: 08:20 - Subjective Subjective: dict Objective - Vital Signs/Intake and Output Vital Signs (last 24 hours): Temp Pulse Resp BP Pulse Ox 98.0 F 70 18 137/80 98 03/23/19 15:54 03/23/19 15:54 03/23/19 15:54 03/23/19 15:54 03/23/19 15:54 Intake and Output: 03/23/19 03/24/19 18:59 06:59 Intake Total 580 Output Total 900 Balance -320 - Medications Medications: Current Medications Acetaminophen (Tylenol 325mg Tab) 650 mg PO Q6 PRN PRN Reason: Pain Ascorbic Acid (Vitamin C 500 Mg Tab) 500 mg PO DAILY [facility] Last Admin: 03/23/19 09:01 Dose: 500 mg Cyanocobalamin (Vitamin B12 1000 Mcg Tab) 1,000 mcg PO DAILY [facility] Last Admin: 03/23/19 09:01 Dose: 1,000 mcg Aztreonam 2 gm/ Sodium (Chloride) 100 mls @ 200 mls/hr IVPB Q8H [facility]; Protocol Last Admin: 03/23/19 17:17 Dose: 200 mls/hr Vancomycin/Sodium Chloride (Vancomycin 1 Gm/Ns 200 Ml) 1 gm in 200 mls @ 133 mls/hr IVPB Q12H [facility]; Protocol Stop: 03/27/19 04:01 Last Admin: 03/23/19 16:30 Dose: 133 mls/hr Olanzapine (Zyprexa) 5 mg PO HS [facility] Last Admin: 03/22/19 21:10 Dose: 5 mg Rivaroxaban (Xarelto) 20 mg PO DAILY [facility] Last Admin: 03/23/19 09:01 Dose: 20 mg Zinc Sulfate (Zinc Sulfate 220 Mg Cap) 220 mg PO DAILY [facility] Last Admin: 03/23/19 09:01 Dose: 220 mg - Labs Labs: 03/21/19 14:35 03/21/19 14:35
[2019-03-24 00:14] VITALS: RESP 20
[2019-03-24] MEDS: Aztreonam 2 GM in Sodium Chloride 0.9% 100 ML IVPB SCH ×3 (00:59→17:57)
--- NOTE | 2019-03-24 01:26 | PN ---
DATE: 03/23/2019 SUBJECTIVE: The patient has left leg pain. He has an ulcer which is dressed up, has been seen by Podiatry, ID, is afebrile. No shortness of breath, decreased discharge. Pending wound culture. PHYSICAL EXAMINATION: VITAL SIGNS: Blood pressure 137/80, pulse 70, respiratory rate 18, temperature 98.0. LUNGS: Clear. CARDIOVASCULAR SYSTEM: S1 and S2. Regular. ABDOMEN: Soft, nontender. Bowel sounds positive. EXTREMITIES: Left leg wound. ASSESSMENT: 1. Wound culture positive for Pseudomonas aeruginosa and Enterococcus, and the patient's bone scan was done yesterday and the bone scan is positive for cellulitis with less likely to be osteomyelitis. 2. Deep venous thrombosis with venous insufficiency with postphlebitic syndrome. 3. Schizoaffective depression. PLAN: Continue antibiotics. Infectious Disease and Podiatry followup. Monitor the patient. Marlon Martin MD
[2019-03-24] MEDS: Vancomycin 1 gm/NS 200 ml 1 GM/200 ML BAG IVPB SCH ×2 (04:00→16:55)
[2019-03-24 08:01] LABS: BLOOD UREA NITROGEN 15 mg/dL (9-20); CALCIUM 8.8 mg/dl (8.6-10.4); GFR NON-AFRICAN AMERICAN > 60
[2019-03-24 08:13] LABS: BASO % 0.6 % (0.0-2.0); EOS # 0.2 K/uL (0.0-0.7); EOS % 5.2 % (0.0-4.0); HEMOGLOBIN 13.8 g/dL (12.0-18.0); LYMPH # 0.7 K/uL (1.0-4.3); LYMPH % 16.3 % (20.0-40.0); MEAN CELL VOLUME 93.9 fL (80.0-94.0); MEAN CORPUSCULAR HEMOGLOBIN 32.4 pg (27.0-31.0); MEAN CORPUSCULAR HGB CONC 34.5 g/dL (33.0-37.0); MEAN PLATELET VOLUME 7.9 fL (7.2-11.7); MONO # 0.5 K/uL (0.0-0.8); MONO % 11.8 % (0.0-10.0); NEUT # 2.9 K/uL (1.8-7.0); NEUT % 66.1 % (50.0-75.0); RBC 4.25 Mil/uL (4.40-5.90); RED CELL DISTRIBUTION WIDTH 12.8 % (11.5-14.5); WHITE BLOOD COUNT 4.5 K/uL (4.8-10.8)
--- NOTE | 2019-03-24 10:52 | CP.PCM.PN ---
Subjective - Date & Time of Evaluation Date of Evaluation: 03/24/19 Time of Evaluation: 06:00 - Subjective Subjective: dict Objective - Vital Signs/Intake and Output Vital Signs (last 24 hours): Temp Pulse Resp BP Pulse Ox 97.4 F L 83 20 111/65 97 03/24/19 08:38 03/24/19 08:38 03/24/19 08:38 03/24/19 08:38 03/24/19 08:38 Intake and Output: 03/24/19 03/24/19 06:59 18:59 Intake Total 800 590 Output Total 700 1000 Balance 100 -410 - Medications Medications: Current Medications Acetaminophen (Tylenol 325mg Tab) 650 mg PO Q6 PRN PRN Reason: Pain Ascorbic Acid (Vitamin C 500 Mg Tab) 500 mg PO DAILY [facility] Last Admin: 03/24/19 09:30 Dose: 500 mg Cyanocobalamin (Vitamin B12 1000 Mcg Tab) 1,000 mcg PO DAILY [facility] Last Admin: 03/24/19 09:30 Dose: 1,000 mcg Aztreonam 2 gm/ Sodium (Chloride) 100 mls @ 200 mls/hr IVPB Q8H [facility]; Protocol Last Admin: 03/24/19 09:30 Dose: 200 mls/hr Vancomycin/Sodium Chloride (Vancomycin 1 Gm/Ns 200 Ml) 1 gm in 200 mls @ 133 mls/hr IVPB Q12H [facility]; Protocol Stop: 03/27/19 04:01 Last Admin: 03/24/19 04:00 Dose: 133 mls/hr Olanzapine (Zyprexa) 5 mg PO HS [facility] Last Admin: 03/23/19 21:24 Dose: 5 mg Rivaroxaban (Xarelto) 20 mg PO DAILY [facility] Last Admin: 03/24/19 09:30 Dose: 20 mg Zinc Sulfate (Zinc Sulfate 220 Mg Cap) 220 mg PO DAILY [facility] Last Admin: 03/24/19 09:30 Dose: 220 mg - Labs Labs: 03/24/19 07:35 03/24/19 07:35
--- NOTE | 2019-03-24 15:09 | CP.PCM.PN ---
Subjective - Date & Time of Evaluation Date of Evaluation: 03/24/19 Time of Evaluation: 09:00 - Subjective Subjective: awake and alert no new complaints interim events noted patient examined entries reviewed labs reviewed orders signed Objective - Vital Signs/Intake and Output Vital Signs (last 24 hours): Temp Pulse Resp BP Pulse Ox 97.4 F L 83 20 111/65 97 03/24/19 08:38 03/24/19 08:38 03/24/19 08:38 03/24/19 08:38 03/24/19 08:38 Intake and Output: 03/24/19 03/24/19 06:59 18:59 Intake Total 800 1170 Output Total 700 1000 Balance 100 170 - Medications Medications: Current Medications Acetaminophen (Tylenol 325mg Tab) 650 mg PO Q6 PRN PRN Reason: Pain Ascorbic Acid (Vitamin C 500 Mg Tab) 500 mg PO DAILY [facility] Last Admin: 03/24/19 09:30 Dose: 500 mg Cyanocobalamin (Vitamin B12 1000 Mcg Tab) 1,000 mcg PO DAILY [facility] Last Admin: 03/24/19 09:30 Dose: 1,000 mcg Aztreonam 2 gm/ Sodium (Chloride) 100 mls @ 200 mls/hr IVPB Q8H [facility]; Protocol Last Admin: 03/24/19 09:30 Dose: 200 mls/hr Vancomycin/Sodium Chloride (Vancomycin 1 Gm/Ns 200 Ml) 1 gm in 200 mls @ 133 mls/hr IVPB Q12H [facility]; Protocol Stop: 03/27/19 04:01 Last Admin: 03/24/19 04:00 Dose: 133 mls/hr Olanzapine (Zyprexa) 5 mg PO [facility] Last Admin: 03/23/19 21:24 Dose: 5 mg Rivaroxaban (Xarelto) 20 mg PO DAILY [facility] Last Admin: 03/24/19 09:30 Dose: 20 mg Zinc Sulfate (Zinc Sulfate 220 Mg Cap) 220 mg PO DAILY [facility] Last Admin: 03/24/19 09:30 Dose: 220 mg - Labs Labs: 03/24/19 07:35 03/24/19 07:35 - Constitutional Appears: Non-toxic, No Acute Distress, Chronically Ill - Head Exam Head Exam: ATRAUMATIC, NORMAL INSPECTION, NORMOCEPHALIC - Eye Exam Eye Exam: EOMI, Normal appearance, PERRL Pupil Exam: NORMAL ACCOMODATION, PERRL - ENT Exam ENT Exam: Mucous Membranes Moist, Normal Exam - Neck Exam Neck Exam: Full ROM, Normal Inspection. absent: Lymphadenopathy - Respiratory Exam Respiratory Exam: Clear to Ausculation Bilateral, NORMAL BREATHING PATTERN - Cardiovascular Exam Cardiovascular Exam: REGULAR RHYTHM, +S1, +S2. absent: Murmur - GI/Abdominal Exam GI & Abdominal Exam: Soft, Normal Bowel Sounds. absent: Tenderness - Rectal Exam Rectal Exam: Deferred - Exam Exam: NORMAL INSPECTION - Extremities Exam Extremities Exam: Full ROM, Normal Capillary Refill, Normal Inspection. absent: Joint Swelling, Pedal Edema - Back Exam Back Exam: NORMAL INSPECTION - Neurological Exam Neurological Exam: Alert, Awake, CN II-XII Intact, Normal Gait, Oriented x3 - Psychiatric Exam Psychiatric exam: Normal Affect, Normal Mood - Skin Skin Exam: Dry, Erythema Additional comments: left leg swelling and redness less Assessment and Plan (1) Postphlebitic ankle ulcer Status: Acute (2) Post-phlebitic dermatosis of both lower extremities Status: Acute (3) Post-phlebitic dermatosis of lower extremity Status: Acute (4) Osteomyelitis of left leg Status: Acute (5) Lymphedema of lower extremity Status: Acute (6) Pressure ulcer of ankle Status: Acute (7) Bipolar 1 disorder, depressed, moderate Status: Chronic - Assessment and Plan (Free Text) Assessment: cont IV antibiotics and wound care may need long course of rx consider DILAN
--- NOTE | 2019-03-24 20:22 | CP.PCM.PN ---
Subjective - Date & Time of Evaluation Date of Evaluation: 03/24/19 Time of Evaluation: 07:20 - Subjective Subjective: dict Objective - Vital Signs/Intake and Output Vital Signs (last 24 hours): Temp Pulse Resp BP Pulse Ox 97.8 F 68 20 111/66 100 03/24/19 16:00 03/24/19 16:00 03/24/19 16:00 03/24/19 16:00 03/24/19 16:00 Intake and Output: 03/24/19 03/25/19 18:59 06:59 Intake Total 1170 Output Total 1000 Balance 170 - Medications Medications: Current Medications Acetaminophen (Tylenol 325mg Tab) 650 mg PO Q6 PRN PRN Reason: Pain Ascorbic Acid (Vitamin C 500 Mg Tab) 500 mg PO DAILY [facility] Last Admin: 03/24/19 09:30 Dose: 500 mg Cyanocobalamin (Vitamin B12 1000 Mcg Tab) 1,000 mcg PO DAILY [facility] Last Admin: 03/24/19 09:30 Dose: 1,000 mcg Aztreonam 2 gm/ Sodium (Chloride) 100 mls @ 200 mls/hr IVPB Q8H [facility]; Protocol Last Admin: 03/24/19 17:57 Dose: 200 mls/hr Vancomycin/Sodium Chloride (Vancomycin 1 Gm/Ns 200 Ml) 1 gm in 200 mls @ 133 mls/hr IVPB Q12H [facility]; Protocol Stop: 03/27/19 04:01 Last Admin: 03/24/19 16:55 Dose: 133 mls/hr Olanzapine (Zyprexa) 5 mg PO HS [facility] Last Admin: 03/23/19 21:24 Dose: 5 mg Rivaroxaban (Xarelto) 20 mg PO DAILY [facility] Last Admin: 03/24/19 09:30 Dose: 20 mg Zinc Sulfate (Zinc Sulfate 220 Mg Cap) 220 mg PO DAILY [facility] Last Admin: 03/24/19 09:30 Dose: 220 mg - Labs Labs: 03/24/19 07:35 03/24/19 07:35
[2019-03-25] MEDS: Aztreonam 2 GM in Sodium Chloride 0.9% 100 ML IVPB SCH ×3 (00:25→16:23)
[2019-03-25] MEDS: Vancomycin 1 gm/NS 200 ml 1 GM/200 ML BAG IVPB SCH ×2 (03:46→16:59)
--- NOTE | 2019-03-25 03:46 | PN ---
DATE: 03/24/2019 SUBJECTIVE: The patient is afebrile, on antibiotics. Multidrug resistant. Multiple germs in his left ankle wound. PHYSICAL EXAMINATION: VITAL SIGNS: Blood pressure 100/60, pulse 70, respiratory rate 18, temperature 98. LUNGS: Clear. CARDIOVASCULAR SYSTEM: S1, S2. Regular. ABDOMEN: Soft. EXTREMITIES: Left ankle wound. ASSESSMENT: 1. Left leg ulcer. 2. Deep venous thrombosis, postphlebitic syndrome. 3. Schizophrenia. PLAN: Medical management. Monitor the patient. Marlon Martin MD
--- NOTE | 2019-03-25 11:33 | CP.PCM.PN ---
Subjective - Date & Time of Evaluation Date of Evaluation: 03/25/19 Time of Evaluation: 11:33 - Subjective Subjective: Podiatry progress note - Dr. Yadira SantillanM seen and evaluated this AM. NAD. No acute events overnight. Patient offers no new complaints to left ankle wound; denies pain to left leg; LLE dressing clean/dry/intact. Unna boot to RLE to be d/c today. Denies n/v/f/d/c/sob/shah/cp. Objective - Vital Signs/Intake and Output Vital Signs (last 24 hours): Temp Pulse Resp BP Pulse Ox 97.5 F L 70 20 106/69 98 03/25/19 07:00 03/25/19 07:00 03/25/19 07:00 03/25/19 07:00 03/25/19 07:00 Intake and Output: 03/25/19 03/25/19 06:59 18:59 Intake Total 650 Output Total 500 Balance 150 - Medications Medications: Current Medications Acetaminophen (Tylenol 325mg Tab) 650 mg PO Q6 PRN PRN Reason: Pain Ascorbic Acid (Vitamin C 500 Mg Tab) 500 mg PO DAILY [facility] Last Admin: 03/25/19 11:00 Dose: 500 mg Cyanocobalamin (Vitamin B12 1000 Mcg Tab) 1,000 mcg PO DAILY [facility] Last Admin: 03/25/19 11:00 Dose: 1,000 mcg Aztreonam 2 gm/ Sodium (Chloride) 100 mls @ 200 mls/hr IVPB Q8H [facility]; Protocol Last Admin: 03/25/19 10:00 Dose: 200 mls/hr Vancomycin/Sodium Chloride (Vancomycin 1 Gm/Ns 200 Ml) 1 gm in 200 mls @ 133 mls/hr IVPB Q12H [facility]; Protocol Stop: 03/27/19 04:01 Last Admin: 03/25/19 03:46 Dose: 133 mls/hr Olanzapine (Zyprexa) 5 mg PO HS [facility] Last Admin: 03/24/19 22:29 Dose: 5 mg Rivaroxaban (Xarelto) 20 mg PO DAILY [facility] Last Admin: 03/25/19 11:00 Dose: 20 mg Zinc Sulfate (Zinc Sulfate 220 Mg Cap) 220 mg PO DAILY [facility] Last Admin: 03/25/19 11:00 Dose: 220 mg - Labs Labs: 03/24/19 07:35 03/24/19 07:35 - Constitutional Appears: Non-toxic, No Acute Distress - Extremities Exam Extremities Exam: Pedal Edema (+2 pitting lower extremity edema b/l) Additional comments: RLE: Unna boot d/c - no open lesions present; venous stasis dermatitis noted c ircumfirentially LLE: Wound noted to medial ankle appears 100% granular/epithelializing; minimal erythema noted periwound; minimal serosanguinous drainage present; no purulence; no fluctuance - improving - Neurological Exam Neurological Exam: Alert, Awake, Oriented x3 - Psychiatric Exam Psychiatric exam: Normal Affect, Normal Mood Assessment and Plan - Assessment and Plan (Free Text) Assessment: 63M with chronic left ankle stasis ulceration, improving; b/l venous stasis dermatitis Plan: Patient seen and evaluated alongside attending, Dr. May VSS Ankle x-ray - possible chronic osteo involvement Bone scan - no evidence of acute osteo Negative DVT Continue abx per ID - Aztreonam, Vancomycin Continue local wound care: Medihoney, xeroform, DSD; SEAN b/l Unna boots x2 ordered, to be applied prior to discharge Stable for d/c per podiatry - Upon d/c will f/u with Dr. May at [facility] will continue to follow
--- NOTE | 2019-03-25 12:35 | CP.PCM.PN ---
Subjective - Date & Time of Evaluation Date of Evaluation: 03/25/19 Time of Evaluation: 09:00 - Subjective Subjective: IV rx in progress swelling less denies fever weak but NAD Objective - Vital Signs/Intake and Output Vital Signs (last 24 hours): Temp Pulse Resp BP Pulse Ox 97.5 F L 70 20 106/69 98 03/25/19 07:00 03/25/19 07:00 03/25/19 07:00 03/25/19 07:00 03/25/19 07:00 Intake and Output: 03/25/19 03/25/19 06:59 18:59 Intake Total 650 Output Total 500 Balance 150 - Medications Medications: Current Medications Acetaminophen (Tylenol 325mg Tab) 650 mg PO Q6 PRN PRN Reason: Pain Ascorbic Acid (Vitamin C 500 Mg Tab) 500 mg PO DAILY [facility] Last Admin: 03/25/19 11:00 Dose: 500 mg Cyanocobalamin (Vitamin B12 1000 Mcg Tab) 1,000 mcg PO DAILY [facility] Last Admin: 03/25/19 11:00 Dose: 1,000 mcg Aztreonam 2 gm/ Sodium (Chloride) 100 mls @ 200 mls/hr IVPB Q8H [facility]; Protocol Last Admin: 03/25/19 10:00 Dose: 200 mls/hr Vancomycin/Sodium Chloride (Vancomycin 1 Gm/Ns 200 Ml) 1 gm in 200 mls @ 133 mls/hr IVPB Q12H [facility]; Protocol Stop: 03/27/19 04:01 Last Admin: 03/25/19 03:46 Dose: 133 mls/hr Olanzapine (Zyprexa) 5 mg PO [facility] Last Admin: 03/24/19 22:29 Dose: 5 mg Rivaroxaban (Xarelto) 20 mg PO DAILY [facility] Last Admin: 03/25/19 11:00 Dose: 20 mg Zinc Sulfate (Zinc Sulfate 220 Mg Cap) 220 mg PO DAILY [facility] Last Admin: 03/25/19 11:00 Dose: 220 mg - Labs Labs: 03/24/19 07:35 03/24/19 07:35 - Constitutional Appears: Non-toxic, No Acute Distress, Cachectic, Chronically Ill - Head Exam Head Exam: ATRAUMATIC, NORMAL INSPECTION, NORMOCEPHALIC - Eye Exam Eye Exam: EOMI, Normal appearance, PERRL Pupil Exam: NORMAL ACCOMODATION, PERRL - ENT Exam ENT Exam: Mucous Membranes Moist, Normal Exam - Neck Exam Neck Exam: Full ROM, Normal Inspection. absent: Lymphadenopathy - Respiratory Exam Respiratory Exam: Clear to Ausculation Bilateral, NORMAL BREATHING PATTERN - Cardiovascular Exam Cardiovascular Exam: REGULAR RHYTHM, +S1, +S2. absent: Murmur - GI/Abdominal Exam GI & Abdominal Exam: Soft, Normal Bowel Sounds. absent: Tenderness - Rectal Exam Rectal Exam: Deferred - Extremities Exam Extremities Exam: Full ROM, Normal Capillary Refill, Normal Inspection. absent: Joint Swelling, Pedal Edema - Back Exam Back Exam: NORMAL INSPECTION - Neurological Exam Neurological Exam: Alert, Awake, CN II-XII Intact, Normal Gait, Oriented x3 - Psychiatric Exam Psychiatric exam: Normal Affect, Normal Mood - Skin Skin Exam: Dry Additional comments: swelling left leg as noted wound wrapped and dry toes warm pulses + Assessment and Plan (1) Postphlebitic ankle ulcer Status: Acute (2) Post-phlebitic dermatosis of both lower extremities Status: Acute (3) Post-phlebitic dermatosis of lower extremity Status: Acute (4) Osteomyelitis of left leg Status: Acute (5) Lymphedema of lower extremity Status: Acute (6) Pressure ulcer of ankle Status: Acute (7) Bipolar 1 disorder, depressed, moderate Status: Chronic - Assessment and Plan (Free Text) Assessment: enterococcus and pseudomonas from wound rx in progress 'IV rx renewed
--- NOTE | 2019-03-25 13:59 | VASCLAB ---
Date of service: 03/22/2019 PROCEDURE: Lower Extremity Venous Duplex Exam. HISTORY: Leg pain PRIORS: None. TECHNIQUE: Bilateral common femoral, femoral, popliteal and posterior tibial, peroneal and great saphenous veins were evaluated. Flow was assessed with color Doppler, compressibility, assessment of phasic flow and augmentation response. Report prepared by Yanna Tomlin, NICOLA, RVS FINDINGS: RIGHT: 1. Common Femoral Vein: 1.1. Compressibility - Fully compressible: Thrombus - None : Flow - Phasic: Augmentation -Normal: Reflux - None. 2. Femoral Vein: 2.1. Compressibility - Fully compressible: Thrombus - None : Flow - Phasic: Augmentation -Normal: Reflux - None. 3. Popliteal Vein: 3.1. Compressibility - Fully compressible: Thrombus - None : Flow - Phasic: Augmentation -Normal: Reflux - None. 4. Posterior Tibial Vein: 4.1. Compressibility - Fully compressible: Thrombus - None: Flow - Phasic: Augmentation -Normal: Reflux - None. 5. Peroneal Vein: 5.1. Compressibility - Fully compressible: Thrombus - None: Flow - Phasic: Augmentation -Normal: Reflux - None. 6. Great Saphenous Vein: 6.1. Compressibility - Fully compressible: Thrombus - None: Flow - Phasic: Augmentation - Normal: Reflux - None. LEFT: 1. Common Femoral Vein: 1.1. Compressibility - Fully compressible: Thrombus - None: Flow - Phasic: Augmentation -Normal: Reflux - None. 2. Femoral Vein: 2.1. Compressibility - Fully compressible: Thrombus - None: Flow - Phasic: Augmentation -Normal: Reflux - None. 3. Popliteal Vein: 3.1. Compressibility - Fully compressible: Thrombus - None : Flow - Phasic: Augmentation -Normal: Reflux - None. 4. Posterior Tibial Vein: 4.1. Compressibility - Fully compressible: Thrombus - None: Flow - Phasic: Augmentation -Normal: Reflux - None. 5. Peroneal Vein: 5.1. Compressibility - Fully compressible: Thrombus - None: Flow - Phasic: Augmentation -Normal: Reflux - None. 6. Great Saphenous Vein: 6.1. Compressibility - Fully compressible: Thrombus - None: Flow - Phasic: Augmentation - Normal: Reflux - None. OTHER FINDINGS: Right: None significant. Left: None significant. IMPRESSION: Right: No evidence of deep or superficial vein thrombosis of the right lower extremity. Normal valve function noted of the right side. Left: No evidence of deep or superficial vein thrombosis of the left lower extremity. Normal valve function noted of the left side. Bilateral chronic thickened venous wall of the both lower extrimities.
--- NOTE | 2019-03-25 20:23 | CP.PCM.PN ---
Subjective - Date & Time of Evaluation Date of Evaluation: 03/25/19 Time of Evaluation: 07:00 - Subjective Subjective: dict Objective - Vital Signs/Intake and Output Vital Signs (last 24 hours): Temp Pulse Resp BP Pulse Ox 97.8 F 64 20 119/78 100 03/25/19 16:39 03/25/19 16:39 03/25/19 16:39 03/25/19 16:39 03/25/19 16:39 - Medications Medications: Current Medications Acetaminophen (Tylenol 325mg Tab) 650 mg PO Q6 PRN PRN Reason: Pain Ascorbic Acid (Vitamin C 500 Mg Tab) 500 mg PO DAILY [facility] Last Admin: 03/25/19 11:00 Dose: 500 mg Cyanocobalamin (Vitamin B12 1000 Mcg Tab) 1,000 mcg PO DAILY [facility] Last Admin: 03/25/19 11:00 Dose: 1,000 mcg Aztreonam 2 gm/ Sodium (Chloride) 100 mls @ 200 mls/hr IVPB Q8H [facility]; Protocol Last Admin: 03/25/19 16:23 Dose: 200 mls/hr Vancomycin/Sodium Chloride (Vancomycin 1 Gm/Ns 200 Ml) 1 gm in 200 mls @ 133 mls/hr IVPB Q12H [facility]; Protocol Stop: 03/27/19 04:01 Last Admin: 03/25/19 16:59 Dose: 133 mls/hr Olanzapine (Zyprexa) 5 mg PO HS [facility] Last Admin: 03/24/19 22:29 Dose: 5 mg Rivaroxaban (Xarelto) 20 mg PO DAILY [facility] Last Admin: 03/25/19 11:00 Dose: 20 mg Zinc Sulfate (Zinc Sulfate 220 Mg Cap) 220 mg PO DAILY [facility] Last Admin: 03/25/19 11:00 Dose: 220 mg - Labs Labs: 03/24/19 07:35 03/24/19 07:35
[2019-03-26] MEDS: Aztreonam 2 GM in Sodium Chloride 0.9% 100 ML IVPB SCH ×3 (01:05→16:14)
--- NOTE | 2019-03-26 02:18 | PN ---
DATE: 03/26/2019 SUBJECTIVE: The patient is on antibiotics, wound care. Afebrile. Multidrug resistant. Multiple germs. PHYSICAL EXAMINATION: VITAL SIGNS: Blood pressure 112/60, pulse 70, respiratory rate 18, temperature 99. ASSESSMENT: Left leg ulcer. PLAN: Antibiotics. Monitor the patient. Marlon Martin MD
[2019-03-26] MEDS: Vancomycin 1 gm/NS 200 ml 1 GM/200 ML BAG IVPB SCH ×2 (03:30→16:51)
--- NOTE | 2019-03-26 10:57 | CP.PCM.PN ---
Subjective - Date & Time of Evaluation Date of Evaluation: 03/26/19 Time of Evaluation: 10:56 - Subjective Subjective: Podiatry progress note - Dr. May 63M seen and evaluated this AM. NAD. No acute events overnight. No new lower extremity complaints per patient. Patient aware he is to follow up with Dr. May upon discharge. Denies n/v/f/d/c/sob/shah/cp. Objective - Vital Signs/Intake and Output Vital Signs (last 24 hours): Temp Pulse Resp BP Pulse Ox 97.9 F 72 20 115/73 99 03/26/19 08:24 03/26/19 08:24 03/26/19 08:24 03/26/19 08:24 03/26/19 08:24 Intake and Output: 03/26/19 03/26/19 06:59 18:59 Intake Total 1350 Output Total 1750 Balance -400 - Medications Medications: Current Medications Acetaminophen (Tylenol 325mg Tab) 650 mg PO Q6 PRN PRN Reason: Pain Ascorbic Acid (Vitamin C 500 Mg Tab) 500 mg PO DAILY [facility] Last Admin: 03/26/19 10:03 Dose: 500 mg Cyanocobalamin (Vitamin B12 1000 Mcg Tab) 1,000 mcg PO DAILY [facility] Last Admin: 03/26/19 09:48 Dose: 1,000 mcg Aztreonam 2 gm/ Sodium (Chloride) 100 mls @ 200 mls/hr IVPB Q8H [facility]; Protocol Last Admin: 03/26/19 08:30 Dose: 200 mls/hr Vancomycin/Sodium Chloride (Vancomycin 1 Gm/Ns 200 Ml) 1 gm in 200 mls @ 133 mls/hr IVPB Q12H [facility]; Protocol Stop: 03/27/19 04:01 Last Admin: 03/26/19 03:30 Dose: 133 mls/hr Olanzapine (Zyprexa) 5 mg PO HS [facility] Last Admin: 03/25/19 21:30 Dose: 5 mg Rivaroxaban (Xarelto) 20 mg PO DAILY [facility] Last Admin: 03/26/19 09:48 Dose: 20 mg Zinc Sulfate (Zinc Sulfate 220 Mg Cap) 220 mg PO DAILY [facility] Last Admin: 03/26/19 09:48 Dose: 220 mg - Labs Labs: 03/24/19 07:35 03/24/19 07:35 - Constitutional Appears: Non-toxic, No Acute Distress - Extremities Exam Additional comments: RLE: No open lesions present; venous stasis dermatitis noted circumfirentially LLE: Wound noted to medial ankle appears 100% granular/epithelializing; minimal erythema noted periwound; minimal serosanguinous drainage present; no purulence; no fluctuance - improving - Neurological Exam Neurological Exam: Alert, Awake, Oriented x3 - Psychiatric Exam Psychiatric exam: Normal Affect, Normal Mood Assessment and Plan - Assessment and Plan (Free Text) Assessment: 63M with chronic left ankle stasis ulceration, improving; b/l venous stasis dermatitis Plan: Patient seen and evaluated alongside attending, Dr. May VSMariam Ankle x-ray - possible chronic osteo involvement Bone scan - no evidence of acute osteo Negative DVT Continue abx per ID - Aztreonam, Vancomycin Continue local wound care: Medihoney, xeroform, DSD; SEAN b/l Unna boots to be applied prior to discharge tomorrow Stable for d/c per podiatry - Upon d/c will f/u with Dr. May at [facility] Podiatry will continue to follow
--- NOTE | 2019-03-26 12:57 | CP.PCM.PN ---
Subjective - Date & Time of Evaluation Date of Evaluation: 03/26/19 Time of Evaluation: 06:00 - Subjective Subjective: DENIES FEVER OR CHILLS iwound mproving alert comfortable NAD Objective - Vital Signs/Intake and Output Vital Signs (last 24 hours): Temp Pulse Resp BP Pulse Ox 97.9 F 72 20 115/73 99 03/26/19 08:24 03/26/19 08:24 03/26/19 08:24 03/26/19 08:24 03/26/19 08:24 Intake and Output: 03/26/19 03/26/19 06:59 18:59 Intake Total 1350 Output Total 1750 Balance -400 - Medications Medications: Current Medications Acetaminophen (Tylenol 325mg Tab) 650 mg PO Q6 PRN PRN Reason: Pain Ascorbic Acid (Vitamin C 500 Mg Tab) 500 mg PO DAILY [facility] Last Admin: 03/26/19 10:03 Dose: 500 mg Cyanocobalamin (Vitamin B12 1000 Mcg Tab) 1,000 mcg PO DAILY [facility] Last Admin: 03/26/19 09:48 Dose: 1,000 mcg Aztreonam 2 gm/ Sodium (Chloride) 100 mls @ 200 mls/hr IVPB Q8H [facility]; Protocol Last Admin: 03/26/19 08:30 Dose: 200 mls/hr Vancomycin/Sodium Chloride (Vancomycin 1 Gm/Ns 200 Ml) 1 gm in 200 mls @ 133 mls/hr IVPB Q12H [facility]; Protocol Stop: 03/27/19 04:01 Last Admin: 03/26/19 03:30 Dose: 133 mls/hr Olanzapine (Zyprexa) 5 mg PO HS [facility] Last Admin: 03/25/19 21:30 Dose: 5 mg Rivaroxaban (Xarelto) 20 mg PO DAILY [facility] Last Admin: 03/26/19 09:48 Dose: 20 mg Zinc Sulfate (Zinc Sulfate 220 Mg Cap) 220 mg PO DAILY [facility] Last Admin: 03/26/19 09:48 Dose: 220 mg - Labs Labs: 03/24/19 07:35 03/24/19 07:35 - Constitutional Appears: Non-toxic, Chronically Ill - Head Exam Head Exam: ATRAUMATIC, NORMAL INSPECTION, NORMOCEPHALIC - Eye Exam Eye Exam: EOMI, Normal appearance, PERRL Pupil Exam: NORMAL ACCOMODATION, PERRL - ENT Exam ENT Exam: Mucous Membranes Moist, Normal Exam - Neck Exam Neck Exam: Full ROM, Normal Inspection. absent: Lymphadenopathy - Respiratory Exam Respiratory Exam: Clear to Ausculation Bilateral, NORMAL BREATHING PATTERN - Cardiovascular Exam Cardiovascular Exam: REGULAR RHYTHM, +S1, +S2. absent: Murmur - GI/Abdominal Exam GI & Abdominal Exam: Soft, Normal Bowel Sounds. absent: Tenderness - Rectal Exam Rectal Exam: Deferred - Exam Exam: NORMAL INSPECTION - Extremities Exam Extremities Exam: Full ROM, Normal Capillary Refill, Normal Inspection. absent: Joint Swelling, Pedal Edema - Back Exam Back Exam: NORMAL INSPECTION - Neurological Exam Neurological Exam: Alert, Awake, CN II-XII Intact, Normal Gait, Oriented x3 - Psychiatric Exam Psychiatric exam: Depressed - Skin Skin Exam: Dry, Erythema, Intact, Warm Additional comments: left leg swelling less Assessment and Plan (1) Postphlebitic ankle ulcer Status: Acute (2) Post-phlebitic dermatosis of both lower extremities Status: Acute (3) Post-phlebitic dermatosis of lower extremity Status: Acute (4) Lymphedema of lower extremity Status: Acute (5) Pressure ulcer of ankle Status: Acute (6) Bipolar 1 disorder, depressed, moderate Status: Chronic - Assessment and Plan (Free Text) Assessment: IV rx in progress wound care continues for d/c on PO rx as OM ruled out follow up with Dr May
--- NOTE | 2019-03-26 17:16 | CP.PCM.PN ---
Subjective - Date & Time of Evaluation Date of Evaluation: 03/26/19 Time of Evaluation: 17:16 - Subjective Subjective: alert, oriented no acute pain or distress. Objective - Vital Signs/Intake and Output Vital Signs (last 24 hours): Temp Pulse Resp BP Pulse Ox 97.8 F 69 20 120/73 99 03/26/19 16:00 03/26/19 16:00 03/26/19 16:00 03/26/19 16:00 03/26/19 16:00 Intake and Output: 03/26/19 03/26/19 06:59 18:59 Intake Total 1350 600 Output Total 1750 600 Balance -400 0 - Medications Medications: Current Medications Acetaminophen (Tylenol 325mg Tab) 650 mg PO Q6 PRN PRN Reason: Pain Ascorbic Acid (Vitamin C 500 Mg Tab) 500 mg PO DAILY [facility] Last Admin: 03/26/19 10:03 Dose: 500 mg Cyanocobalamin (Vitamin B12 1000 Mcg Tab) 1,000 mcg PO DAILY [facility] Last Admin: 03/26/19 09:48 Dose: 1,000 mcg Aztreonam 2 gm/ Sodium (Chloride) 100 mls @ 200 mls/hr IVPB Q8H [facility]; Protocol Last Admin: 03/26/19 16:14 Dose: 200 mls/hr Vancomycin/Sodium Chloride (Vancomycin 1 Gm/Ns 200 Ml) 1 gm in 200 mls @ 133 mls/hr IVPB Q12H [facility]; Protocol Stop: 03/27/19 04:01 Last Admin: 03/26/19 16:51 Dose: 133 mls/hr Olanzapine (Zyprexa) 5 mg PO HS [facility] Last Admin: 03/25/19 21:30 Dose: 5 mg Rivaroxaban (Xarelto) 20 mg PO DAILY [facility] Last Admin: 03/26/19 09:48 Dose: 20 mg Zinc Sulfate (Zinc Sulfate 220 Mg Cap) 220 mg PO DAILY [facility] Last Admin: 03/26/19 09:48 Dose: 220 mg - Labs Labs: 03/24/19 07:35 03/24/19 07:35 Assessment and Plan - Assessment and Plan (Free Text) Assessment: 63 Year old male admitted with non healing left leg ulcer, seen and examined. Alert ambulatory, no acute distress. Podiatry plans to put unna boots tomorrow, the plan to discharge home on oral antibiotics as per DR Hudson for7 days. Advised to follow up with DR May at the wound care center at [place].
--- NOTE | 2019-03-26 22:40 | CP.PCM.PN ---
Subjective - Date & Time of Evaluation Date of Evaluation: 03/26/19 Time of Evaluation: 07:00 - Subjective Subjective: dict Objective - Vital Signs/Intake and Output Vital Signs (last 24 hours): Temp Pulse Resp BP Pulse Ox 97.8 F 69 20 120/73 99 03/26/19 16:00 03/26/19 16:00 03/26/19 16:00 03/26/19 16:00 03/26/19 16:00 Intake and Output: 03/26/19 03/27/19 18:59 06:59 Intake Total 600 Output Total 600 Balance 0 - Medications Medications: Current Medications Acetaminophen (Tylenol 325mg Tab) 650 mg PO Q6 PRN PRN Reason: Pain Ascorbic Acid (Vitamin C 500 Mg Tab) 500 mg PO DAILY [facility] Last Admin: 03/26/19 10:03 Dose: 500 mg Cyanocobalamin (Vitamin B12 1000 Mcg Tab) 1,000 mcg PO DAILY [facility] Last Admin: 03/26/19 09:48 Dose: 1,000 mcg Aztreonam 2 gm/ Sodium (Chloride) 100 mls @ 200 mls/hr IVPB Q8H [facility]; Protocol Last Admin: 03/26/19 16:14 Dose: 200 mls/hr Vancomycin/Sodium Chloride (Vancomycin 1 Gm/Ns 200 Ml) 1 gm in 200 mls @ 133 mls/hr IVPB Q12H [facility]; Protocol Stop: 03/27/19 04:01 Last Admin: 03/26/19 16:51 Dose: 133 mls/hr Olanzapine (Zyprexa) 5 mg PO HS [facility] Last Admin: 03/26/19 21:43 Dose: 5 mg Rivaroxaban (Xarelto) 20 mg PO DAILY [facility] Last Admin: 03/26/19 09:48 Dose: 20 mg Zinc Sulfate (Zinc Sulfate 220 Mg Cap) 220 mg PO DAILY [facility] Last Admin: 03/26/19 09:48 Dose: 220 mg - Labs Labs: 03/24/19 07:35 03/24/19 07:35
[2019-03-27] MEDS: Aztreonam 2 GM in Sodium Chloride 0.9% 100 ML IVPB SCH ×2 (00:46→09:50)
[2019-03-27] MEDS: Vancomycin 1 gm/NS 200 ml 1 GM/200 ML BAG IVPB SCH (03:31)
--- NOTE | 2019-03-27 06:56 | PN ---
DATE: 03/26/2019 SUBJECTIVE: The patient is feeling better. He is afebrile. No shortness of breath. P.o. Cipro for one week. PHYSICAL EXAMINATION: VITAL SIGNS: Blood pressure 134/52, pulse 67, respiratory rate 20, temperature 97.6. LUNGS: Clear. CARDIOVASCULAR SYSTEM: S1, S2, regular. ABDOMEN: Soft. ASSESSMENT: 1. Left leg venous ulcer with infection with pseudomonas and enterococcus. 2. Venous insufficiency, deep venous thrombosis. 3. Schizophrenia. PLAN: Continue current medication. Monitor the patient. Marlon Martin MD
[2019-03-27 08:25] VITALS: O2SAT 99
--- NOTE | 2019-03-27 09:11 | CP.PCM.PN ---
Subjective - Date & Time of Evaluation Date of Evaluation: 03/27/19 Time of Evaluation: 09:11 - Subjective Subjective: Podiatry progress note - Dr. Yadira SantillanM seen and evaluated this AM. NAD. No acute events overnight. No new lower extremity complaints. Denies n/v/f/d/c/sob/shah/cp. Unna boots to be applied today before d/c. Objective - Vital Signs/Intake and Output Vital Signs (last 24 hours): Temp Pulse Resp BP Pulse Ox 97.6 F 75 20 116/77 99 03/27/19 08:24 03/27/19 08:24 03/27/19 08:24 03/27/19 08:24 03/27/19 08:24 Intake and Output: 03/27/19 03/27/19 06:59 18:59 Intake Total 550 500 Output Total 850 700 Balance -300 -200 - Medications Medications: Current Medications Acetaminophen (Tylenol 325mg Tab) 650 mg PO Q6 PRN PRN Reason: Pain Ascorbic Acid (Vitamin C 500 Mg Tab) 500 mg PO DAILY [facility] Last Admin: 03/26/19 10:03 Dose: 500 mg Cyanocobalamin (Vitamin B12 1000 Mcg Tab) 1,000 mcg PO DAILY [facility] Last Admin: 03/26/19 09:48 Dose: 1,000 mcg Aztreonam 2 gm/ Sodium (Chloride) 100 mls @ 200 mls/hr IVPB Q8H [facility]; Protocol Last Admin: 03/27/19 00:46 Dose: 200 mls/hr Olanzapine (Zyprexa) 5 mg PO HS [facility] Last Admin: 03/26/19 21:43 Dose: 5 mg Rivaroxaban (Xarelto) 20 mg PO DAILY [facility] Last Admin: 03/26/19 09:48 Dose: 20 mg Zinc Sulfate (Zinc Sulfate 220 Mg Cap) 220 mg PO DAILY [facility] Last Admin: 03/26/19 09:48 Dose: 220 mg - Labs Labs: 03/24/19 07:35 03/24/19 07:35 - Constitutional Appears: Non-toxic, No Acute Distress - Extremities Exam Additional comments: RLE: No open lesions present; venous stasis dermatitis noted circumfirentially LLE: Wound noted to medial ankle appears 100% granular/epithelializing; minimal erythema noted periwound; minimal serosanguinous drainage present; no purulence; no fluctuance - improving - Neurological Exam Neurological Exam: Alert, Awake, Oriented x3 - Psychiatric Exam Psychiatric exam: Normal Affect, Normal Mood Assessment and Plan - Assessment and Plan (Free Text) Assessment: 63M with chronic left ankle stasis ulceration, improving; b/l venous stasis dermatitis Plan: Patient seen and evaluated Discussed with attending, Dr. May VSMariam Ankle x-ray - possible chronic osteo involvement Bone scan - no evidence of acute osteo Negative DVT Continue abx per ID - will be d/c home on PO Cipro x1 week Continue local wound care: Medihoney, xerform LLE Unna boots applied b/l - keep clean/dry/intact until wound care appointment Stable for d/c per podiatry - Upon d/c will f/u with Dr. May at [facility] within 7 days Podiatry will continue to follow
[2019-03-27 15:37] VITALS: BP 118/75; PULSE 109; TEMP 99.6
--- NOTE | 2019-03-27 15:42 | CP.PCM.PN ---
Subjective - Date & Time of Evaluation Date of Evaluation: 03/27/19 Time of Evaluation: 13:00 - Subjective Subjective: patient seen today, denies any complaints UNNA boots applied by podiatry team today vss- stable , a febrile Objective - Vital Signs/Intake and Output Vital Signs (last 24 hours): Temp Pulse Resp BP Pulse Ox 99.6 F 109 H 20 118/75 99 03/27/19 15:00 03/27/19 15:00 03/27/19 15:00 03/27/19 15:00 03/27/19 15:00 Intake and Output: 03/27/19 03/27/19 06:59 18:59 Intake Total 550 500 Output Total 850 700 Balance -300 -200 - Medications Medications: Current Medications Acetaminophen (Tylenol 325mg Tab) 650 mg PO Q6 PRN PRN Reason: Pain Ascorbic Acid (Vitamin C 500 Mg Tab) 500 mg PO DAILY [facility] Last Admin: 03/27/19 09:57 Dose: 500 mg Cyanocobalamin (Vitamin B12 1000 Mcg Tab) 1,000 mcg PO DAILY [facility] Last Admin: 03/27/19 09:57 Dose: 1,000 mcg Aztreonam 2 gm/ Sodium (Chloride) 100 mls @ 200 mls/hr IVPB Q8H [facility]; Protocol Olanzapine (Zyprexa) 5 mg PO HS [facility] Last Admin: 03/26/19 21:43 Dose: 5 mg Rivaroxaban (Xarelto) 20 mg PO DAILY [facility] Last Admin: 03/27/19 09:57 Dose: 20 mg Zinc Sulfate (Zinc Sulfate 220 Mg Cap) 220 mg PO DAILY [facility] Last Admin: 03/27/19 09:56 Dose: 220 mg - Labs Labs: 03/24/19 07:35 03/24/19 07:35 Assessment and Plan - Assessment and Plan (Free Text) Assessment: A/P 63 year old male seen at [facility] this week and worsened ankle ulcer with Psuedomonas infection and failed outpatient therapy sent by Dr. May for evaluation wound culture + for Pseudomonus and Enterococus and started on antibiotics Bone scan - negative for OM and + cellulitis Plan for patient to discharge with cipro .PO but pateint cannot take cipro with zyprexia and reaction before d/w Dr. morales patient needs 7 days of aztroneum discussed with patient ref. DILAN for antibiotics and patient agrees to go to [facility] D/w Dr. Martin cleared for discharge to [facility] today and Dr. martin will follow the patient at [facility] Dr. May also will follow the patient at [facility] will repeat labs in 3 days
[2019-03-27] MEDS ORDERED: Aztreonam 2 GM in Sodium Chloride 0.9% 100 ML IVPB SCH (18:00)
--- NOTE | 2019-03-27 21:37 | CP.PCM.DIS ---
Provider - Provider Date of Admission: 03/21/19 15:03 Attending physician: Marlon Martin MD Consults: 03/21/19 15:03 Podiatry Consult Routine Comment: Consulting Provider: Portillo May Consulting Physician: Portillo May Reason for Consult: non-healing LE ulcer 03/21/19 19:41 Infectious Disease Consult Routine Comment: Consulting Provider: Ken Guardado Consulting Physician: Ken Guardado Reason for Consult: Non healing LE Ulcer 03/22/19 15:28 Infectious Disease Consult Routine Comment: Consulting Provider: Reginald Hudson Consulting Physician: Reginald Hudson Reason for Consult: Non healing bilateral leg ulcer Time Spent in preparation of Discharge (in minutes): 30 Hospital Course - Lab Results Lab Results: Micro Results 03/21/19 14:30 Blood Blood Culture - Final NO GROWTH AFTER 5 DAYS 03/21/19 14:30 Blood Gram Stain - Final TEST NOT PERFORMED 03/21/19 14:00 Blood Blood Culture - Final NO GROWTH AFTER 5 DAYS 03/21/19 14:00 Blood Gram Stain - Final TEST NOT PERFORMED 03/21/19 14:56 Leg - Left Gram Stain - Final 03/21/19 14:56 Leg - Left Wound Culture - Final Pseudomonas Aeruginosa Enterococcus Faecalis Most Recent Lab Values WBC 4.5 K/uL (4.8-10.8) L 03/24/19 07:35 RBC 4.25 Mil/uL (4.40-5.90) L 03/24/19 07:35 Hgb 13.8 g/dL (12.0-18.0) 03/24/19 07:35 Hct 39.9 % (35.0-51.0) 03/24/19 07:35 MCV 93.9 fL (80.0-94.0) 03/24/19 07:35 MCH 32.4 pg (27.0-31.0) H 03/24/19 07:35 MCHC 34.5 g/dL (33.0-37.0) 03/24/19 07:35 RDW 12.8 % (11.5-14.5) 03/24/19 07:35 Plt Count 227 K/uL (130-400) 03/24/19 07:35 MPV 7.9 fL (7.2-11.7) 03/24/19 07:35 Neut % (Auto) 66.1 % (50.0-75.0) 03/24/19 07:35 Lymph % (Auto) 16.3 % (20.0-40.0) L 03/24/19 07:35 [place] % (Auto) 11.8 % (0.0-10.0) H 03/24/19 07:35 Eos % (Auto) 5.2 % (0.0-4.0) H 03/24/19 07:35 Baso % (Auto) 0.6 % (0.0-2.0) 03/24/19 07:35 Neut # (Auto) 2.9 K/uL (1.8-7.0) 03/24/19 07:35 Lymph # (Auto) 0.7 K/uL (1.0-4.3) L 03/24/19 07:35 [place] # (Auto) 0.5 K/uL (0.0-0.8) 03/24/19 07:35 Eos # (Auto) 0.2 K/uL (0.0-0.7) 03/24/19 07:35 Baso # (Auto) 0.0 K/uL (0.0-0.2) 03/24/19 07:35 Sodium 136 mmol/L (132-148) 03/24/19 07:35 Potassium 4.1 mmol/L (3.6-5.2) 03/24/19 07:35 Chloride 102 mmol/L (98-107) 03/24/19 07:35 Carbon Dioxide 29 mmol/L (22-30) 03/24/19 07:35 Anion Gap 9 (10-20) L 03/24/19 07:35 BUN 15 mg/dL (9-20) 03/24/19 07:35 Creatinine 0.5 mg/dL (0.8-1.5) L 03/24/19 07:35 Est GFR ( Amer) > 60 03/24/19 07:35 Est GFR (Non-Af Amer) > 60 03/24/19 07:35 Random Glucose 83 mg/dL (75-110) 03/24/19 07:35 Calcium 8.8 mg/dl (8.6-10.4) 03/24/19 07:35 Total Bilirubin 0.4 mg/dL (0.2-1.3) 03/21/19 14:35 AST 32 U/L (17-59) 03/21/19 14:35 ALT 28 U/L (21-72) 03/21/19 14:35 Alkaline Phosphatase 53 U/L (38-126) 03/21/19 14:35 Total Protein 6.7 g/dL (6.3-8.3) 03/21/19 14:35 Albumin 4.0 g/dL (3.5-5.0) 03/21/19 14:35 Globulin 2.8 gm/dL (2.2-3.9) 03/21/19 14:35 Albumin/Globulin Ratio 1.4 (1.0-2.1) 03/21/19 14:35 Vancomycin Trough 6.9 ug/mL (5.0-10.0) 03/24/19 16:00 Discharge Exam - Head Exam Head Exam: ATRAUMATIC, NORMAL INSPECTION, NORMOCEPHALIC Discharge Plan - Discharge Medications Prescriptions: Aztreonam [Azactam] 2 gm IVPB Q8H #21 vial - Follow Up Plan Condition: FAIR Disposition: REHAB FACILITY/REHAB UNIT Instructions: Ciprofloxacin (Systemic), Osteomyelitis (DC) Additional Instructions: Please admit patient under Dr. Martin service - call Dr. Martin upon patient arrival to the facility Please call Dr. May - Podiatry consult while patient at [facility] view - keep UNNO boot ( placed by Dr. May) Please continue aztroneum x 7 days Please continue all other medications Please repeat cbc, BMP MONDAY Referrals: Marlon Martin MD [Staff Provider] - Reginald Hudson MD [Staff Provider] - Portillo May DPM [Staff Provider] -
--- NOTE | 2019-03-28 06:52 | DS ---
DISCHARGE DIAGNOSES: 1. Cellulitis of left leg ulcer. 2. Chronic venous insufficiency. 3. Deep venous thrombosis. 4. Postphlebitic syndrome. 5. Schizophrenia. HOSPITAL COURSE: This is a 63-year-old white male with history of schizophrenia, chronic venous insufficiency due to deep venous thrombosis of left lower leg with chronic nonhealing ulcer on the left lateral malleolus, prior hospitalization with multiple courses of antibiotics and wound care, being followed up by Dr. May on an outpatient basis, and he came in because of worsening infection. Stable on discharge left lateral malleolus, wound culture grew pseudomonas and enterococcus. The patient was on antibiotic, wound care, Infectious Disease and Podiatry followup. The patient did well. He is for transfer to subacute rehab. Because of multiple drug allergies, he needs Azactam for one more week before going home. The patient will be followed up as outpatient. Marlon Martin MD
== END 2019-03-27 17:15 | DRG 593 ==
LOC: C.ER 13:10 → C.9E 15:03 → C.3T 16:52
PROVIDERS: ADMIT Internal Medicine; ATTEND Internal Medicine
DX: L97.329 Non-pressure chronic ulcer of left ankle with unspecified severity (principal); I87.013 Postthrombotic syndrome with ulcer of bilateral lower extremity; M86.672 Other chronic osteomyelitis, left ankle and foot; L03.116 Cellulitis of left lower limb; L03.115 Cellulitis of right lower limb; I82.503 Chronic embolism and thrombosis of unspecified deep veins of lower extremity, bilateral; L97.319 Non-pressure chronic ulcer of right ankle with unspecified severity; F31.32 Bipolar disorder, current episode depressed, moderate; I10 Essential (primary) hypertension; F25.9 Schizoaffective disorder, unspecified; I87.2 Venous insufficiency (chronic) (peripheral); I89.0 Lymphedema, not elsewhere classified; B96.5 Pseudomonas (aeruginosa) (mallei) (pseudomallei) as the cause of diseases classified elsewhere; B95.2 Enterococcus as the cause of diseases classified elsewhere; Z16.24 Resistance to multiple antibiotics; Z91.19 Patient's noncompliance with other medical treatment and regimen; Z79.01 Long term (current) use of anticoagulants; Z86.39 Personal history of other endocrine, nutritional and metabolic disease